=== PATIENT | male | born 1985 | race Caucasian/White ===

== ENCOUNTER 2016-05-16 11:03 | Emergency (ER) | payer OTHER ==
[~2016-05-16] VITALS: Ht 180.3 cm; Wt 71.3 kg
[~2016-05-16 11:03] MED LIST: CLB/200 PO
[2016-05-16 11:10] VITALS: TEMP 37; Ht 180.3 cm; Wt 71.3 kg
[2016-05-16] MEDS ORDERED: HYDR-5688 PO (11:30)
[2016-05-16] MEDS ORDERED: PENI500T2 PO (11:30)
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
[2016-05-16] MEDS ORDERED: ONDA4TAB10 SL (11:35)
[2016-05-16 11:42] VITALS: BP 153/88; PULSE 69; O2SAT 99
== END 2016-05-16 11:45 | disposition home or self-care (01) ==
LOC: C.EDB 11:04 → C.EDD 11:45
DX: K04.7 Periapical abscess without sinus (principal); J45.909 Unspecified asthma, uncomplicated; F32.9 Major depressive disorder, single episode, unspecified; F17.200 Nicotine dependence, unspecified, uncomplicated; Z87.898 Personal history of other specified conditions; Z87.828 Personal history of other (healed) physical injury and trauma